=== PATIENT | male | born 1985 | race African-American/Black ===

== ENCOUNTER 2019-11-11 00:28 | Emergency (ER) | payer MEDICAID ==
[~2019-11-11] VITALS: Ht 175.3 cm; Wt 86.0 kg
[2019-11-11] MEDS ORDERED: SODIUM CHLORIDE 0.9% 1,000 ML IV ONE (01:00)
[2019-11-11 01:02] LABS: BASOPHILS % 1.3 % (0.0-2.0); EOSINOPHILS % 2.3 % (0.0-5.0); LYMPHOCYTES % 60.1 % (20.0-50.0); MEAN CORPUSCULAR HEMOGLOBIN 32.9 pg (28.0-32.0); MEAN CORPUSCULAR VOLUME 94.4 fL (80.0-94.0); MEAN PLATELET VOLUME 8.4 fl (7.4-10.4); NEUTROPHILS % 31.3 % (40.0-76.0); PLATELET 226 x1000/uL (130-400); RED BLOOD CELL COUNT 4.56 mill/uL (4.7-6.1); RED CELL DISTRIBUTION WIDTH 12.8 % (11.6-14.6)
[2019-11-11 01:09] LABS: CHLORIDE 104 mEq/L (98-107)
[2019-11-11 01:13] LABS: ETHANOL BLOOD < 10 mg/dL
[2019-11-11] MEDS ORDERED: ONDANSETRON HCL 4MG/2ML INJ IV ONE (01:15)
[2019-11-11 01:41] LABS: *AMPHETAMINES SCREEN URINE PRESUMTIVE POSITIVE (NEGATIVE); *BARBITURATES SCREEN URINE NEGATIVE (NEGATIVE); *BENZODIAZEPINES SCREEN URINE NEGATIVE (NEGATIVE); *COCAINE SCREEN URINE NEGATIVE (NEGATIVE); METHADONE URINE SCREEN NEGATIVE (NEGATIVE)
[2019-11-11 01:42] LABS: CANNABINOID URINE SCREEN PRESUMTIVE POSITIVE (NEGATIVE); OPIATES URINE SCREEN NEGATIVE (NEGATIVE); PHENCYCLIDINE URINE SCREEN NEGATIVE (NEGATIVE)
[2019-11-11] MEDS ORDERED: POTASSIUM CHLORIDE INJ 40 MEQ in DEXT 5% WATER 250 ML IV ONE (01:45)
[2019-11-11 01:48] LABS: CLARITY URINE CLEAR (CLEAR); COLOR URINE YELLOW (YELLOW); KETONES URINE NEGATIVE (NEGATIVE); LEUKOCYTE ESTERASE URINE NEGATIVE (NEGATIVE); NITRITE URINE NEGATIVE (NEGATIVE); OCCULT BLOOD URINE NEGATIVE (NEGATIVE); PROTEIN URINE NEGATIVE (NEGATIVE); SPECIFIC GRAVITY URINE 1.011 (1.005-1.030)
[2019-11-11] MEDS ORDERED: POTASSIUM CHLORIDE 20MEQ TABLET SR PO NR (05:00)
[2019-11-11 05:08] LABS: INR 1.1; PARTIAL THROMBOPLASTIN TIME 27.9 sec (23.4-31.0); PROTHROMBIN TIME 11.8 sec (9.6-11.0)
[2019-11-11 06:17] VITALS: BP 125/84
== END 2019-11-11 06:51 | disposition home or self-care (01) ==
LOC: ER 00:28
DX: T40.2X1A Poisoning by other opioids, accidental (unintentional), initial encounter (principal); E87.6 Hypokalemia; F11.10 Opioid abuse, uncomplicated; Y92.018 Other place in single-family (private) house as the place of occurrence of the external cause
CPT/HCPCS: 36415; 80053; 80305; 80307; 80320; 80329; 81003; 82140; 85025; 85610; 85730; 93005; 96365; 96366; 96375; 99285; J2405; J3480; J7030; J7060; G0480

== ENCOUNTER 2019-11-11 06:50 | Inpatient (IN) | payer MEDICAID ==
[~2019-11-11] VITALS: Ht 170.2 cm; Wt 72.3 kg
[2019-11-11] MEDS ORDERED: ONDANSETRON HCL 4MG/2ML INJ IV STA (07:12)
[2019-11-11] MEDS ORDERED: SODIUM CHLORIDE 0.9% 1,000 ML IV ONE (07:12)
[2019-11-11 07:39] LABS: BASOPHILS % 0.5 % (0.0-2.0); EOSINOPHILS % 0.4 % (0.0-5.0); HEMATOCRIT. 44.5 % (42.0-52.0); HEMOGLOBIN. 15.3 g/dL (14.0-18.0); LYMPHOCYTES % 27.3 % (20.0-50.0); MEAN CORPUSCULAR HEMOGLOBIN 32.6 pg (28.0-32.0); MEAN CORPUSCULAR VOLUME 94.8 fL (80.0-94.0); MEAN PLATELET VOLUME 8.3 fl (7.4-10.4); MONOCYTES % 2.9 % (2.0-8.0); NEUTROPHILS % 68.9 % (40.0-76.0); PLATELET 217 x1000/uL (130-400); RED BLOOD CELL COUNT 4.69 mill/uL (4.7-6.1); RED CELL DISTRIBUTION WIDTH 12.8 % (11.6-14.6)
[2019-11-11] MEDS ORDERED: ATROPINE SULFATE 1MG/10ML SYR IV ONE ×2 (07:45→12:45)
[2019-11-11 07:49] LABS: CHLORIDE 106 mEq/L (98-107)
[2019-11-11 08:03] LABS: *BARBITURATES SCREEN URINE NEGATIVE (NEGATIVE)
[2019-11-11 08:04] LABS: *AMPHETAMINES SCREEN URINE NEGATIVE (NEGATIVE); *BENZODIAZEPINES SCREEN URINE NEGATIVE (NEGATIVE); *COCAINE SCREEN URINE NEGATIVE (NEGATIVE); METHADONE URINE SCREEN NEGATIVE (NEGATIVE); OPIATES URINE SCREEN NEGATIVE (NEGATIVE); PHENCYCLIDINE URINE SCREEN NEGATIVE (NEGATIVE)
[2019-11-11 08:05] LABS: CANNABINOID URINE SCREEN PRESUMTIVE POSITIVE (NEGATIVE)
[2019-11-11] MEDS ORDERED: LIDOCAINE HCL 1% 20ML VIAL (Pyxis) INJ ONE (13:40)
[2019-11-11] MEDS ORDERED: LORAZEPAM 2MG/ML CPJ IV SCH (18:00)
[2019-11-11] MEDS ORDERED: ONDANSETRON HCL 4MG/2ML INJ IV SCH (18:00)
[2019-11-11] MEDS ORDERED: LORAZEPAM 2MG/ML CPJ IV PRN (18:00)
[2019-11-12] VITALS (73 sets, daily range): BP systolic 88–168; BP diastolic 40–99
[2019-11-12] MEDS: DOPAMINE 400MG/250ML PREMIX 250 ML IV PRN ×2 (00:57→10:19)
[2019-11-12 05:21] LABS: BASOPHILS % 0.3 % (0.0-2.0); EOSINOPHILS % 0.2 % (0.0-5.0); HEMATOCRIT. 45.3 % (42.0-52.0); HEMOGLOBIN. 15.7 g/dL (14.0-18.0); LYMPHOCYTES % 17.1 % (20.0-50.0); MEAN CORPUSCULAR HEMOGLOBIN 32.5 pg (28.0-32.0); MEAN CORPUSCULAR VOLUME 93.6 fL (80.0-94.0); MEAN PLATELET VOLUME 7.9 fl (7.4-10.4); MONOCYTES % 5.6 % (2.0-8.0); NEUTROPHILS % 76.8 % (40.0-76.0); PLATELET 222 x1000/uL (130-400); RED BLOOD CELL COUNT 4.84 mill/uL (4.7-6.1); RED CELL DISTRIBUTION WIDTH 12.6 % (11.6-14.6)
[2019-11-12 05:27] LABS: CHLORIDE 102 mEq/L (98-107)
[2019-11-12] MEDS ORDERED: LORAZEPAM 0.5MG TABLET PO PRN (13:45)
[2019-11-12] MEDS ORDERED: ACETAMINOPHEN 325MG TABLET PO PRN (14:30)
[2019-11-13] VITALS (19 sets, daily range): BP systolic 94–127; BP diastolic 39–82
[2019-11-13 07:50] LABS: BASOPHILS % 0.8 % (0.0-2.0); EOSINOPHILS % 0.7 % (0.0-5.0); HEMATOCRIT. 45.7 % (42.0-52.0); LYMPHOCYTES % 42.1 % (20.0-50.0); MEAN CORPUSCULAR HEMOGLOBIN 32.3 pg (28.0-32.0); MEAN CORPUSCULAR VOLUME 92.3 fL (80.0-94.0); MEAN PLATELET VOLUME 8.1 fl (7.4-10.4); MONOCYTES % 6.6 % (2.0-8.0); NEUTROPHILS % 49.8 % (40.0-76.0); PLATELET 219 x1000/uL (130-400); RED BLOOD CELL COUNT 4.96 mill/uL (4.7-6.1); RED CELL DISTRIBUTION WIDTH 12.6 % (11.6-14.6)
[2019-11-13 07:56] LABS: CHLORIDE 103 mEq/L (98-107)
== END 2019-11-13 11:00 | disposition left against medical advice (07) | DRG 201 ==
LOC: ER 06:50 → MICUSO 08:59 → EDBEDREQSVC 13:30 → CVICU 22:50
PROVIDERS: ADMIT Internal Medicine; ATTEND Internal Medicine
PROC: 02HV33Z Insertion of Infusion Device into Superior Vena Cava, Percutaneous Approach (ICD-10-PCS; principal; 2019-11-11)
PROC: B548ZZA Ultrasonography of Superior Vena Cava, Guidance (ICD-10-PCS; 2019-11-11)
DX: R00.1 Bradycardia, unspecified (principal); I95.9 Hypotension, unspecified; F17.290 Nicotine dependence, other tobacco product, uncomplicated; R73.9 Hyperglycemia, unspecified; Z83.3 Family history of diabetes mellitus
CPT/HCPCS: 36415; 71045; 76937; 80048; 80053; 80305; 83880; 84484; 85025; 93005; 93306; 96374; 99291; C1725; J0461; J1265; J2060; J2405; J3490; J7030

== ENCOUNTER 2019-11-14 00:04 | Emergency (ER) | payer MEDICAID ==
[~2019-11-14] VITALS: Ht 167.6 cm; Wt 64.0 kg
[2019-11-14 02:17] LABS: CHLORIDE 99 mEq/L (98-107)
[2019-11-14 03:05] LABS: BASOPHILS % 0.9 % (0.0-2.0); HEMATOCRIT. 48.1 % (42.0-52.0); HEMOGLOBIN. 16.5 g/dL (14.0-18.0); LYMPHOCYTES % 35.7 % (20.0-50.0); MEAN CORPUSCULAR VOLUME 93.5 fL (80.0-94.0); MONOCYTES % 8.5 % (2.0-8.0); NEUTROPHILS % 52.9 % (40.0-76.0); PLATELET 238 x1000/uL (130-400); RED BLOOD CELL COUNT 5.15 mill/uL (4.7-6.1); RED CELL DISTRIBUTION WIDTH 12.7 % (11.6-14.6)
[2019-11-14 04:29] LABS: *AMPHETAMINES SCREEN URINE PRESUMTIVE POSITIVE (NEGATIVE); *BARBITURATES SCREEN URINE NEGATIVE (NEGATIVE); *BENZODIAZEPINES SCREEN URINE NEGATIVE (NEGATIVE); *COCAINE SCREEN URINE NEGATIVE (NEGATIVE); METHADONE URINE SCREEN NEGATIVE (NEGATIVE); OPIATES URINE SCREEN NEGATIVE (NEGATIVE)
[2019-11-14 04:30] LABS: CANNABINOID URINE SCREEN PRESUMTIVE POSITIVE (NEGATIVE); PHENCYCLIDINE URINE SCREEN NEGATIVE (NEGATIVE)
[2019-11-14] MEDS ORDERED: SODIUM CHLORIDE 0.9% 1,000 ML IV SCH (06:26)
[2019-11-14] MEDS ORDERED: GUAIFENESIN 200MG/10ML SUGAR FREE UDC PO PRN (06:30)
[2019-11-14] MEDS ORDERED: DOCUSATE SODIUM 100MG CAPSULE PO PRN (06:30)
[2019-11-14] MEDS ORDERED: MAGNESIUM/ALUMINUM HYDROXIDE/SIMETHICONE 30ML UDC PO PRN (06:30)
[2019-11-14] MEDS ORDERED: LORAZEPAM 0.5MG TABLET PO PRN (06:30)
[2019-11-14] MEDS ORDERED: IPRATROPIUM/ALBUTEROL 0.5-3(2.5)MG/3ML NEB ORI PRN (06:30)
[2019-11-14] MEDS ORDERED: ONDANSETRON HCL 4MG/2ML INJ IV PRN (06:30)
[2019-11-14] MEDS ORDERED: CLONIDINE 0.1MG TABLET PO PRN (06:30)
[2019-11-14] MEDS ORDERED: KETOROLAC 15MG/ML VIAL IV PRN (06:30)
[2019-11-14] MEDS ORDERED: NITROGLYCERIN 0.4MG TABLET SL SL PRN (06:30)
[2019-11-14] MEDS ORDERED: ACETAMINOPHEN 325MG TABLET PO PRN ×2 (06:30)
[2019-11-14] MEDS ORDERED: ASPIRIN 81MG EC TABLET PO SCH (09:00)
[2019-11-14] MEDS ORDERED: ENOXAPARIN 40MG/0.4ML SYR SUBCUT SCH (09:00)
[2019-11-14] MEDS ORDERED: FAMOTIDINE 20MG TABLET PO SCH (09:00)
[2019-11-14 10:09] VITALS: BP 102/68
[2019-11-14] MEDS ORDERED: ZOLPIDEM TARTRATE 5MG TABLET PO PRN (21:00)
== END 2019-11-14 10:13 | disposition left against medical advice (07) ==
LOC: ER 00:04 → CANBEDREQ 20:14
DX: F15.10 Other stimulant abuse, uncomplicated (principal); F12.10 Cannabis abuse, uncomplicated; E87.6 Hypokalemia; R00.1 Bradycardia, unspecified; F11.10 Opioid abuse, uncomplicated
CPT/HCPCS: 36415; 80048; 80061; 80305; 82962; 83036; 84484; 85025; 93005; 93970; 99285

== ENCOUNTER 2019-12-16 08:31 | Emergency (ER) | payer MEDICAID ==
[~2019-12-16] VITALS: Ht 175.3 cm; Wt 77.0 kg
[2019-12-16 08:34] VITALS: BP 104/73
[2019-12-16] MEDS ORDERED: IBUPROFEN 600MG TABLET PO ONE (08:45)
[2019-12-16] MEDS ORDERED: HYDROCODONE/ACETAMINOPHEN 5/325MG TABLET PO ONE (09:30)
== END 2019-12-16 10:15 | disposition home or self-care (01) ==
LOC: ER 08:51
DX: S62.324A Displaced fracture of shaft of fourth metacarpal bone, right hand, initial encounter for closed fracture (principal); M25.552 Pain in left hip; Y04.0XXA Assault by unarmed brawl or fight, initial encounter; Y93.89 Activity, other specified; Y92.89 Other specified places as the place of occurrence of the external cause
CPT/HCPCS: 29125; 73110; 73130; 99284